=== PATIENT | female | born 1970 | race Caucasian/White ===

== ENCOUNTER 2018-03-23 16:39 | Emergency (ER) | payer OTHER, SELFPAY ==
[2018-03-23 16:40] VITALS: BP 170/99; PULSE 79; RESP 18; TEMP 36.6; O2SAT 99; BMI 37.8
--- NOTE | 2018-03-23 17:05 | CT_ITS ---
STUDY: CT ABDOMEN AND PELVIS WITHOUT CONTRAST REASON FOR EXAM: Female, 48 years old. Flank pain RADIATION DOSAGE (If Supplied By Facility): CTDIvol = ( 10.97 ) mGy, DLP = ( 517.90 ) mGycm TECHNIQUE: Transaxial images were obtained from the dome of the diaphragm to the symphysis pubis without oral contrast, and without intravenous contrast. Sagittal and coronal images were reconstructed. Individualized dose optimization techniques were used for this CT. COMPARISON: None. FINDINGS: Evaluation of the abdominal viscera is limited in the absence of intravenous contrast. The visualized lung bases are clear. The visualized portions of the heart and pericardium are within normal limits. There are no calcified gallstones present. There is a simple cyst in the liver. The spleen is normal in size. The pancreas demonstrates an unremarkable unenhanced appearance. The adrenal glands are within normal limits. There are no renal or ureteral stones. There is no hydronephrosis. Normal visualized stomach. There is no bowel obstruction or inflammation. The appendix is visualized and appears normal. The aorta is normal in caliber. There is no abdominal or pelvic free air, free fluid, fluid collection or lymphadenopathy. There is an intrauterine device noted. There are no destructive osseous lesions. CT/Abdomen/Pelvis without Cont IMPRESSION: No acute abdominal or pelvic pathology demonstrated on this noncontrast CT. Electronically Signed: Lorenzo Ordaz, at 18:14 EDT Tel , Service support ,
--- NOTE | 2018-03-23 17:06 | ED.VISSUMM ---
- ER Visit Summary Date of Service: 03/23/18 Chief Complaint: Right flank pain History of Present Illness: The patient is a 48 F presenting with right flank pain. She states this started suddenly around 1 AM. It woke her up from sleep. She states at worst it is 8/10. Currently 6/10. She does not recall any heavy lifting or injury. She was seen by her primary care physician today. Urine test in the office showed trace blood. She was sent to the ED to rule out kidney stone. She has nausea with no vomiting. Denies fever. Denies other complaints. Physical Examination: Vitals are stable. Patient is afebrile. Alert no acute distress. HEENT exam is unremarkable. Neck is supple. Lungs are clear and equal bilaterally. Heart is regular rate and rhythm. Abdomen is soft nontender nondistended. Back: thoracic and paraspinal thoracic tenderness bilaterally Extremities are unremarkable. Skin is warm and dry. No focal neurologic deficit. Remainder of exam is unremarkable. Emergency Department Course and Treatment: Patient was given Toradol, Zofran IV. CBC, chemistries unremarkable. D-dimer is negative. CT abdomen pelvis shows no acute process. On reexam patient continues to have mid thoracic tenderness. MRI was obtained which shows no evidence for acute fracture or other significant bony pathology. No evidence for acute osteomyelitis or discitis. On reevaluation, patient is resting comfortably. She will follow-up with her primary care physician Dr. Hanna. She is advised to return to ED if worsening complaints. She is given prescriptions for Naprosyn and Flexeril. Disposition: Discharge home Impression: Acute back pain This note was generated with [employer] dictation software. It may contain incorrect words, spelling, and punctuation that were not noted in review of the chart prior to signing ED Disposition - Plan for ED Patient: Disposition: Home or Assisted Living Chief Complaint: Flank Pain Instructions: ED Neck Back Pain General Prescriptions: RX: Naproxen [Naprosyn] 500 mg PO BID PRN #20 tablet Cyclobenzaprine [Flexeril] 10 mg PO TID PRN #20 tablet PRN Reason: Muscle Spasm Referrals: Cristo Hanna MD [Primary Care Provider] -
[2018-03-23 17:35] VITALS: BP 152/102; PULSE 74; RESP 14; O2SAT 98
[2018-03-23] MEDS: Ondansetron 4 MG/2 ML Vial IV (17:40)
[2018-03-23] MEDS: Ketorolac 30 MG/ML Syringe IV (17:41)
[2018-03-23 18:59] VITALS: BP 135/89; PULSE 75; RESP 14; O2SAT 98
--- NOTE | 2018-03-23 19:09 | MRI_ITS ---
STUDY: MRI THORACIC SPINE WITH AND WITHOUT CONTRAST REASON FOR EXAM: Female, 48 years old. Mid to lower thoracic pain possible abscess TECHNIQUE: 8 ml of Gadavist was administered intravenously for the contrast portion of the examination. # of Images: 212 COMPARISON: None. FINDINGS: Normal kyphosis of the thoracic spine. There is no substantial scoliosis. Small hemangioma within the T6 and T10 vertebral body. No evidence for acute fracture or subluxation. Disc space heights are well-maintained although there is desiccation of the discs consistent with degeneration, there is no focal disc protrusion spinal stenosis or cord compression. Normal visualized thoracic cord. Normal conus medullaris that terminates at T12-L1 The soft tissue structures are unremarkable. There is no enhancing abnormality. MRI/Spine Thoracic W/WO Contrast IMPRESSION: No evidence for acute fracture or other significant bony pathology.. No evidence for acute osteomyelitis or discitis. Electronically Signed: Charles Feliz MD at 20:54 EDT , Service support ,
[2018-03-23 19:28] LABS: Absolute Lymphocyte Count 2.71 X10^3/ul (0.83-4.51); Basophil# 0.03 X10^3/uL; Basophil% 0.4 % (0-1); Eosinophil# 0.09 X10^3/uL; Eosinophils% 1.2 % (0-5); Hematocrit 44.8 % (37-47); Hemoglobin 14.8 g/dl (12.0-15.0); Lymphocyte # 2.71 X10^3/ul (4.0); Lymphocyte % 36.1 % (19-41); Mean Corpuscular Hgb 31.3 pg (27.0-32.0); Mean Corpuscular Volume 94.7 fL (81-99); Mean Platelet Vol. 12.2 fl (6.2-12.0); Monocyte# 0.69 X10^3/uL; Monocyte% 9.2 % (0-10); Neutrophil # 3.98 X10^3/uL (2.7-7.7); POSITIVE COUNT NO; POSITIVE DIFFERENTIAL NO; POSITIVE MORPHOLOGY NO; Platelet Count 199 K/mm3 (150-450); RBC Distribution Width CV 13.3 % (11.6-14.6); RBC Distribution Width SD 45.6 fl (35.1-43.9); Red Blood Count 4.73 M/mm3 (4.2-5.4); White Blood Count 7.5 K/mm3 (4.4-11.0)
[2018-03-23 19:52] LABS: Anion Gap 7 (5-15); BUN 9 mg/dL (7-18); BUN/Creat Ratio 11.5 RATIO (10-20); Calcium,Total 8.9 mg/dL (8.5-10.1); Chloride 105 mmol/L (98-107); Creatinine, Serum 0.78 mg/dL (0.55-1.02); EST Glomerular Filtration Rate 83 mL/min (>60); Est Glom Filt Rate - Afr Amer 100 mL/min (>60); Estimated Creatinine Clearance 61.98 ml/min; Glucose 78 mg/dL (74-106); Potassium 4.2 mmol/L (3.5-5.1); Sodium Level 138 mmol/L (136-145)
[2018-03-23 22:00] VITALS: BP 125/88; PULSE 78; RESP 16; O2SAT 96
[2018-03-23 22:27] LABS: D-Dimer Quantitative (DVT/PE) 0.42 FEU/ug/m (0.27-0.49)
--- NOTE | 2018-03-23 22:47 | ED.DEP ---
ED Disposition - Plan for ED Patient: Chief Complaint: Flank Pain Instructions: ED Neck Back Pain General Prescriptions: Naproxen [Naprosyn] 500 mg PO BID PRN #20 tablet Cyclobenzaprine [Flexeril] 10 mg PO TID PRN #20 tablet PRN Reason: Muscle Spasm Referrals: Cristo Hanna MD [Primary Care Provider] -
[2018-03-23 22:55] VITALS: RESP 16
== END 2018-03-23 22:57 | disposition home or self-care (01) ==
LOC: ED 17:10
PROVIDERS: Emergency Provider Emergency Medicine; Family Provider Family Medicine; PCP Family Medicine
DX: M54.6 Pain in thoracic spine (principal); R11.0 Nausea
CPT/HCPCS: 72157; 74176; 80048; 85025; 85379; 96374; 96375; 99283; A9585; A4216; J2405

== ENCOUNTER → 2018-04-05 08:37 | Outpatient (CLI) | payer OTHER, SELFPAY | PROVIDERS: Family Provider Family Medicine; PCP Family Medicine; Visit Provider Family Medicine | DX: R39.9 Unspecified symptoms and signs involving the genitourinary system (principal) | CPT/HCPCS: 87086; 87088 ==